=== PATIENT | female | born 1955 | race Caucasian/White ===

== ENCOUNTER 2017-12-01 12:08 | Emergency (ER) | payer OTHER ==
[2017-12-01] MEDS ORDERED: ASPIRIN 81 MG CHEWABLE TABLETS PO ONE (12:24)
[2017-12-01 12:25] VITALS: BMI 35.6
--- NOTE | 2017-12-01 12:25 | PDOC ---
History of Present Illness - General History Source: Patient, EMS Exam Limitations: No Limitations <Ashleigh Coello - Last Filed: 12/01/17 14:58> - General History Source: Patient, EMS Exam Limitations: No Limitations <Carmella Betancourt - Last Filed: 12/01/17 15:55> - General Chief Complaint: Irregular Heart Beat Stated Complaint: RAPID HEART RATE Time Seen by Provider: 12/01/17 12:23 - History of Present Illness Initial Comments: The patient is a 62 year old female with a significant past medical history of hypertension, hyperparathyroidism, and hyperlipidemia who was brought in by EMS to the emergency department for evaluation of new onset atrial fibrillation. The patient was prompted to visit the emergency department by her PCP (Dr. Gimenez) after abnormal EKG readings. The patient has no previous cardiac history. Of note, EMS administered cardizem 25mg. The patient denies chest pain, shortness of breath, headache, and dizziness. Denies fevers, chills, nausea, vomiting, diarrhea, and constipation. Allergies: Penicillins Past surgical history: , Left knee, upcoming parathyroid gland removal (2018) Social history: No reported cigarette, alcohol, or drug use. PCP: Dr. Gimenez ([phone]) (Ashleigh Coello) Past History <Ashleigh Coello - Last Filed: 12/01/17 14:58> <Carmella Betancourt - Last Filed: 12/01/17 15:55> - Past Medical History Allergies/Adverse Reactions: Allergies Allergy/AdvReac Type Severity Reaction Status Date / Time Penicillins Allergy Verified 12/01/17 12:22 Home Medications: Ambulatory Orders Apixaban [Eliquis - Starter Pack] 5 mg PO UTDICT 30 Days #30 tab 12/01/17 Arginine [l-Arginine] 1,000 mg PO DAILY 12/01/17 Echinacea 400 mg PO DAILY 12/01/17 Metoprolol Tartrate 25 mg PO BID #60 tablet 12/01/17 Metoprolol Tartrate [Lopressor -] 25 mg PO DAILY 12/01/17 Multivit with Iron,Minerals [Compete] 1 each PO DAILY 12/01/17 Rosuvastatin Calcium [Crestor] 20 mg PO DAILY 12/01/17 Ubiquinol 50 mg PO DAILY 12/01/17 Valsartan/Hydrochlorothiazide [Valsartan-Hctz 320-25 mg Tab] 1 each PO DAILY Review of Systems - Review of Systems Able to Perform ROS?: Yes <Ashleigh Coello - Last Filed: 12/01/17 14:58> <Carmella Betancourt - Last Filed: 12/01/17 15:55> - Review of Systems Comments:: CONSTITUTIONAL: Absent: Fever, Chills, Diaphoresis, Generalized Weakness, Malaise, Loss of Appetite HEENT: Absent: Rhinorrhea, Nasal Congestion, Throat Pain, Throat Swelling, Difficulty Swallowing, Mouth Swelling, Ear Pain, Eye Pain, Visual Changes CARDIOVASCULAR: Absent: Chest Pain, Syncope, Palpitations, Irregular Heart Rate, Lightheadedness , Peripheral Edema RESPIRATORY: Absent: Cough, Shortness of Breath, SOB with Exertion, Orthopnea, Wheezing, Stridor, Hemoptysis GASTROINTESTINAL: Absent: Abdominal pain, Abdominal Distension, Nausea, Vomiting, Diarrhea, Constipation, Melena, Hematochezia GENITOURINARY: Absent: Dysuria, Frequency, Urgency, Hesitancy, Flank Pain, Genital Pain MUSCULOSKELETAL: Absent: Myalgia, Arthralgia, Joint Swelling, Back pain, Neck Pain SKIN: Absent: Rash, Itching, Pallor HEMEATOLOGIC/IMMUNOLOGIC: Absent: Easy Bleeding, Easy Bruising, Lymphadenopathy, Frequent infections ENDOCRINE: Absent: Unexplained Weight Gain, Unexplained Weight Loss, Heat Intolerance, Cold Intolerance NEUROLOGIC: Absent: Headache, Focal Weakness, Paresthesias, Vertigo, Lightheadedness, Unsteady Gait, Seizure, Mental Status Changes, Incontinence PSYCHIATRIC: Absent: Anxiety, Depression (Ashleigh Coello) *Physical Exam <Ashleigh Coello - Last Filed: 12/01/17 14:58> <Carmella Betancourt - Last Filed: 12/01/17 15:55> - Vital Signs Last Vital Signs Temp Pulse Resp BP Pulse Ox 97.8 F 68 16 124/67 98 12/01/17 14:05 12/01/17 14:05 12/01/17 14:05 12/01/17 14:05 12/01/17 14:05 - Physical Exam Comments: GENERAL: The patient is in no acute distress. HEAD: Normal with no signs of trauma. EYES: PERRLA, EOMI, sclera anicteric, conjunctiva clear. ENT: Ears normal, nares patent, oropharynx clear without exudates. Moist mucous membranes. NECK: Normal range of motion, supple without lymphadenopathy, JVD, or masses. LUNGS: Breath sounds equal, clear to auscultation bilaterally. No wheezes, and no crackles. HEART:Regular rate and rhythm, normal S1 and S2 without murmur, rub or gallop. ABDOMEN: Soft, nontender, normoactive bowel sounds. No guarding, no rebound. No masses palpable. EXTREMITIES: Normal range of motion, no edema. No clubbing or cyanosis. No erythema, or tenderness. NEUROLOGICAL: Cranial nerves II through XII grossly intact. Normal speech. No focal neurological deficits. MUSCULOSKELETAL: Back non-tender to palpation, no CVA tenderness SKIN: Warm, Dry, normal turgor, no rashes or lesions noted. (Ashleigh Coello) ED Treatment Course - LABORATORY CBC & Chemistry Diagram: 12/01/17 13:25 12/01/17 13:25 <Ashleigh Coello - Last Filed: 12/01/17 14:58> - LABORATORY CBC & Chemistry Diagram: 12/01/17 13:25 12/01/17 13:25 <Carmella Betancourt - Last Filed: 12/01/17 15:55> - ADDITIONAL ORDERS Additional order review: Laboratory Results 12/01/17 12/01/17 12/01/17 15:02 13:25 13:25 PT with INR INR Sodium 145 Potassium 4.2 Chloride 112 H Carbon Dioxide 27 Anion Gap 6 L BUN 18 Creatinine 0.8 Creat Clearance w eGFR > 60 Random Glucose 97 Calcium 9.6 Magnesium 1.9 Total Bilirubin 0.4 AST 26 ALT 41 Alkaline Phosphatase 62 Creatine Kinase 60 Troponin I < 0.02 B-Natriuretic Peptide 93.89 Total Protein 6.1 L Albumin 3.5 TSH 1.18 Stool Occult Blood Negative Blood Type B NEGATIVE Antibody Screen Negative 12/01/17 13:25 PT with INR 12.00 INR 1.06 Sodium Potassium Chloride Carbon Dioxide Anion Gap BUN Creatinine Creat Clearance w eGFR Random Glucose Calcium Magnesium Total Bilirubin AST ALT Alkaline Phosphatase Creatine Kinase Troponin I B-Natriuretic Peptide Total Protein Albumin TSH Stool Occult Blood Blood Type Antibody Screen 12/01/17 13:25 RBC 4.33 MCV 95.6 MCHC 33.8 RDW 13.3 MPV 10.1 Neutrophils % 76.9 Lymphocytes % 16.5 Monocytes % 5.4 Eosinophils % 0.7 Basophils % 0.5 - RADIOLOGY Radiology Studies Ordered: Category Date Time Status CHEST X-RAY PORTABLE* [RAD] Stat Radiology 12/01/17 12:25 Completed - Medications Given in the ED: ED Medications Discontinued Medications Generic Name Dose Route Start Last Admin Trade Name Leanne PRN Reason Stop Dose Admin Apixaban 5 mg 12/01/17 15:22 12/01/17 15:32 Eliquis - PO 12/01/17 15:23 5 mg NOW ONE Administration Aspirin 162 mg 12/01/17 12:24 12/01/17 12:38 Asa - PO 12/01/17 12:25 162 mg ONCE ONE Administration Medical Decision Making <Ashleigh Coello - Last Filed: 12/01/17 14:58> <Carmella Betancourt - Last Filed: 12/01/17 15:55> - Medical Decision Making Consulted with Dr. Ruelas at 14:[address] Gimenez at 14:58. (Ashleigh Coello) 12/01/17 15:18 Ms Arevalo is a 62 yo F who presents to the ER from PMD's office due to new onset Afib Pt was at her PMD's office for a routine follow up Pt noted to be tachycardic EKG performed, noted to be Afib rate of 130s No prior EKG like this Pt sent to the ER via EMS Given Cardizem Upon arrival to the ER, HR 70-80, SR Pt never had chest pain, shortness of breath, palpitations, generalized weakness or lightheadedness no fevers or chills No recent travel No prior episodes like this Will do: Labs EKG continuous monitor EKG: ST rate of 69 bpm, axis nml, intervals nml, no st elevations or depressions , 12/01/17 15:18 Laboratory Tests 12/01/17 12/01/17 12/01/17 13:25 13:25 13:25 WBC 9.2 Hgb 14.0 Hct 41.4 Plt Count 189 Neutrophils % 76.9 Lymphocytes % 16.5 PT with INR 12.00 INR 1.06 Sodium 145 Potassium 4.2 Chloride 112 H Carbon Dioxide 27 BUN 18 Creatinine 0.8 Random Glucose 97 Creatine Kinase 60 Troponin I < 0.02 B-Natriuretic Peptide 93.89 TSH 1.18 Stool Occult Blood 12/01/17 15:02 WBC Hgb Hct Plt Count Neutrophils % Lymphocytes % PT with INR INR Sodium Potassium Chloride Carbon Dioxide BUN Creatinine Random Glucose Creatine Kinase Troponin I B-Natriuretic Peptide TSH Stool Occult Blood Negative 12/01/17 15:20 CHAD2 VASC = [address] Ruelas Pt can be discharge to home Can start Elliquis Can start Metoprolol Pt can go to his office now Follow up this week I have given clear instructions regarding increased risk of bleeding, need for ER visit for head trauma clinical impression: new onset Afib, initial presentation 12/01/17 15:54 (Carmella Betancourt) *DC/Admit/Observation/Transfer <Ashleigh Coello - Last Filed: 12/01/17 14:58> - Discharge Dispostion Admit: No <Carmella Betancourt - Last Filed: 12/01/17 15:55> Diagnosis at time of Disposition: New onset a-fib - Discharge Dispostion Disposition: HOME Condition at time of disposition: Stable - Prescriptions Prescriptions: Apixaban [Eliquis - Starter Pack] 5 mg PO UTDICT 30 Days #30 tab Metoprolol Tartrate 25 mg PO BID #60 tablet - Referrals Referrals: Mary Gimenez MD [Primary Care Provider] - Louie Ruelas MD [Staff Physician] - - Patient Instructions Printed Discharge Instructions: DI for Atrial Fibrillation Additional Instructions: THANK YOU for coming in to the ER today Please be sure to take medications as prescribed: Elliquis for blood thinning due to intermittent atrial fibrillation (which can cause blood clots in the heart) Metoprolol for heart rate control Please go to Dr Ruelas's office now He will give you samples of the medications Please be sure to make an appointment with Dr Ruelas please also be aware: you will be more prone to bleeding come to the ER if you have any head trauma If you have any cuts you will bleed for a longer time than normal - Attestations Scribe Attestion: Documentation prepared by Ashleigh Coello, acting as emergency medical technician for Carmella Betancourt MD. (Ashleigh Coello)
[2017-12-01] MEDS ORDERED: SODIUM CHLORIDE 1,000 ML IV SCH (12:30)
[2017-12-01] MEDS ORDERED: ASPIRIN 81 MG CHEWABLE TABLETS ONE (12:41)
[2017-12-01 13:35] LABS: BASO % 0.5 % (0-2.0); EOS % 0.7 % (0-4.5); HEMATOCRIT 41.4 % (32.4-45.2); LYMPH % 16.5 % (8-40); MCH 32.3 pg (25.7-33.7); MCHC 33.8 g/dl (32.0-36.0); MEAN CELL VOLUME 95.6 fl (80-96); MEAN PLT VOLUME 10.1 fl (7.5-11.1); MONO % 5.4 % (3.8-10.2); NEUT % 76.9 % (42.8-82.8); PLATELET COUNT 189 K/MM3 (134-434); RBC 4.33 M/mm3 (3.60-5.2); RDW 13.3 % (11.6-15.6); WHITE BLOOD COUNT 9.2 K/mm3 (4.0-10.0)
[2017-12-01 13:47] LABS: INR 1.06 (0.82-1.09)
[2017-12-01 14:00] LABS: ALBUMIN 3.5 g/dl (3.4-5.0); BLOOD UREA NITROGEN 18 mg/dL (7-18); CALCIUM 9.6 mg/dL (8.5-10.1); CO2 27 mmol/L (21-32); CREATININE 0.8 mg/dL (0.55-1.02); GLUCOSE,RANDOM 97 mg/dL (74-106); MAGNESIUM 1.9 mg/dL (1.8-2.4); SGOT/AST 26 U/L (15-37); SGPT/ALT 41 U/L (12-78)
[2017-12-01 14:01] LABS: BILIRUBIN,TOTAL 0.4 mg/dL (0.2-1.0); TOT PROT 6.1 g/dl (6.4-8.2)
[2017-12-01 14:04] LABS: ALK PHOS 62 U/L (45-117); N-TERMINAL BNP 93.89 pg/ml (5-125)
[2017-12-01 14:06] VITALS: BP 124/67; PULSE 68; TEMP 97.8
[2017-12-01 14:10] LABS: ANION GAP 6 (8-16); CHLORIDE 112 mmol/L (98-107); POTASSIUM 4.2 mmol/L (3.5-5.1); SODIUM 145 mmol/L (136-145)
--- NOTE | 2017-12-01 15:08 | EKG ---
Test Reason : Blood Pressure : / mmHG Vent. Rate : 069 BPM Atrial Rate : 069 BPM P-R Int : 116 ms QRS Dur : 082 ms QT Int : 360 ms P-R-T Axes : 040 011 011 degrees QTc Int : 385 ms NORMAL SINUS RHYTHM MINIMAL VOLTAGE CRITERIA FOR LVH, MAY BE NORMAL VARIANT BORDERLINE ECG NO PREVIOUS ECGS AVAILABLE Confirmed by HECTOR COMBS MD ([id number]) on 12/01/2017 3:07:48 PM Referred By: Confirmed By:HECTOR COMBS MD
[2017-12-01] MEDS ORDERED: APIXABAN 5 MG TABLET PO ONE (15:22)
[2017-12-01 17:06] LABS: N-TERMINAL BNP 94.64 pg/ml (5-125)
== END 2017-12-01 16:05 | disposition home or self-care (01) ==
LOC: JER 12:08
PROC: 3E0337Z Introduction of Electrolytic and Water Balance Substance into Peripheral Vein, Percutaneous Approach (ICD-10-PCS; principal; 2017-12-01)
DX: I48.91 Unspecified atrial fibrillation (principal)
CPT/HCPCS: 36415; 71045-TC-FY; 80053; 82272; 82550; 83735; 83880; 84443; 84484; 85025; 85610; 86850; 86900; 86901; 93005; 93010; 96360; 96361; 99285-25; J7030

== ENCOUNTER 2023-01-20 04:57 | Day surgery (SDC) | payer OTHER, MEDICARE ==
[2023-01-15 12:26] VITALS: BMI 37.7
[2023-01-20 10:32] VITALS: TEMP 98
[2023-01-20 12:10] VITALS: BP 100/65; PULSE 96; RESP 16
== END 2023-01-20 12:20 | disposition home or self-care (01) ==
LOC: JASU-ENDO 04:57
PROVIDERS: ATTEND Internal Medicine Gastroenterology
PROC: 0DBP8ZX Excision of Rectum, Via Natural or Artificial Opening Endoscopic, Diagnostic (ICD-10-PCS; 2023-01-20)
PROC: 0DBN8ZX Excision of Sigmoid Colon, Via Natural or Artificial Opening Endoscopic, Diagnostic (ICD-10-PCS; principal; 2023-01-20 11:00)
DX: Z12.11 Encounter for screening for malignant neoplasm of colon (principal); D12.8 Benign neoplasm of rectum; K63.5 Polyp of colon
CPT/HCPCS: 88305-TC